=== PATIENT | male | born 1945 | race Caucasian/White ===

== ENCOUNTER 2017-06-17 10:55 | Emergency (ER) | payer MEDICARE, BC ==
[~2017-06-17 10:55] MED LIST: 1-ME1LIQ PO; ASPI325T PO; DIAZ10 PO; HUMSS SQ; LOSA25 PO
[2017-06-17 10:59] VITALS: BP 189/90; PULSE 81; RESP 20; TEMP 94.6; O2SAT 97
[2017-06-17] MEDS ORDERED: HUMILIN (11:05)
[2017-06-17] MEDS ORDERED: LOSA50TA PO (11:05)
[2017-06-17] MEDS ORDERED: HUMU70IN SQ (11:05)
--- NOTE | 2017-06-17 11:12 | PD ---
HPI Chief Complaint: General Weakness Time Seen by Provider: 11:07 Travel History International Travel<30 days: No Contact w/Intl Traveler<30days: No Traveled to known affect area: No History of Present Illness HPI Patient presents for an episode of hypoglycemia this morning reports a blood sugar 57. Transported by [facility], given an amp of D50. Reassessment of random blood sugar was 127. States his a.m. blood sugar normally runs in the 160s. States he is feeling fatigued and worn out. Denies any nausea vomiting diarrhea or fever. Denies any new chest pain shortness of breath urinary or bowel symptoms. Nonsmoker. History of hypertension and diabetes. PFSH Past Medical History Arthritis: Yes (Neck) Asthma: No Autoimmune Disease: No Blood Disorders: No Anxiety: No Depression: Yes Heart Rhythm Problems: No Cancer: Yes (Skin) Cardiovascular Problems: Yes High Cholesterol: Yes Chemotherapy: No Chest Pain: No Congestive Heart Failure: No COPD: No Cerebrovascular Accident: No Diabetes: Yes Patient Takes Glucophage: No Diminished Hearing: No Endocrine: Yes Gastrointestinal Disorders: No GERD: No Glaucoma: No Genitourinary: No Headaches: Yes Hepatitis: No Hiatal Hernia: No Hypertension: Yes Immune Disorder: No Implanted Vascular Access Dvce: No Kidney Stones: No Musculoskeletal: Yes Neurologic: Yes Psychiatric: No Reproductive: No Respiratory: Yes Immunizations Current: Yes Migraines: No Myocardial Infarction: No Radiation Therapy: No Renal Failure: No Seizures: No Sickle Cell Disease: No Sleep Apnea: Yes Thyroid Disease: No Ulcer: No PNEUMOCCOCAL Vaccine (Year): 2 Past Surgical History Abdominal Surgery: Yes (Colon repair) AICD: No Appendectomy: Yes Arteriovenous Shunt: No Cardiac Surgery: No Cholecystectomy: No Ear Surgery: No Endocrine Surgery: No Eye Surgery: Yes (BL cataracts ) Genitourinary Surgery: Yes Gynecologic Surgery: No Insulin Pump: No Joint Replacement: No Neurologic Surgery: No Oral Surgery: No Pacemaker: No Thoracic Surgery: No Other Surgery: Yes (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) Social History Alcohol Use: Yes (6 beers/night) Tobacco Use: No Substance Use: No Allergies-Medications (Allergen,Severity, Reaction): Coded Allergies: No Known Allergies (Verified , 06/17/17) Reported Meds & Prescriptions Reported Meds & Active Scripts Active Reported Losartan (Losartan Potassium) 50 Mg Tab 50 Mg PO DAILY [Humilin] Humulin 70-30 Inj (Insulin NPH Isophane-Reg (Human) 70-30 Inj) 1,000 Unit/10 Ml Vial 14 Unit SQ BID Review of Systems General / Constitutional: No: Fever Eyes: No: Visual changes HENT: No: Headaches Cardiovascular: No: Chest Pain or Discomfort Respiratory: No: Shortness of Breath Gastrointestinal: No: Abdominal Pain Genitourinary: No: Dysuria Musculoskeletal: No: Pain Skin: No Rash Neurologic: No: Weakness Psychiatric: No: Depression Endocrine: No: Polydipsia Hematologic/Lymphatic: No: Easy Bruising Physical Exam Narrative GENERAL: Well-nourished, well-developed patient. SKIN: Focused skin assessment warm/dry. HEAD: Normocephalic. EYES: No scleral icterus. No injection or drainage. NECK: Supple, trachea midline. No JVD or lymphadenopathy. CARDIOVASCULAR: Regular rate and rhythm without murmurs, gallops, or rubs. RESPIRATORY: Breath sounds equal bilaterally. No accessory muscle use. GASTROINTESTINAL: Abdomen soft, non-tender, nondistended. MUSCULOSKELETAL: No cyanosis, or edema. BACK: Nontender without obvious deformity. No CVA tenderness. Data Data Last Documented VS Vital Signs Date Time Temp Pulse Resp B/P (MAP) Pulse Ox O2 Delivery O2 Flow Rate FiO2 06/17/17 13:04 80 20 160/85 (110) 95 06/17/17 10:59 94.6 Orders Orders Sodium Chlorid 0.9% 500 Ml Inj (Ns 500 M (06/17/17 11:15) Chest, Single Ap (06/17/17 ) Complete Blood Count With Diff (06/17/17 11:07) Basic Metabolic Panel (Bmp) (06/17/17 11:07) Urinalysis - C+S If Indicated (06/17/17 11:07) Labs Laboratory Tests Test 06/17/17 11:15 06/17/17 12:30 White Blood Count 5.6 TH/MM3 Red Blood Count 4.73 MIL/MM3 Hemoglobin 14.6 GM/DL Hematocrit 43.8 % Mean Corpuscular Volume 92.7 FL Mean Corpuscular Hemoglobin 30.9 PG Mean Corpuscular Hemoglobin Concent 33.3 % Red Cell Distribution Width 12.3 % Platelet Count 148 TH/MM3 Mean Platelet Volume 10.7 FL Neutrophils (%) (Auto) 63.5 % Lymphocytes (%) (Auto) 25.2 % Monocytes (%) (Auto) 8.8 % Eosinophils (%) (Auto) 2.0 % Basophils (%) (Auto) 0.5 % Neutrophils # (Auto) 3.6 TH/MM3 Lymphocytes # (Auto) 1.4 TH/MM3 Monocytes # (Auto) 0.5 TH/MM3 Eosinophils # (Auto) 0.1 TH/MM3 Basophils # (Auto) 0.0 TH/MM3 CBC Comment DIFF FINAL Differential Comment Blood Urea Nitrogen 10 MG/DL Creatinine 1.10 MG/DL Random Glucose 100 MG/DL Calcium Level 9.2 MG/DL Sodium Level 138 MEQ/L Potassium Level 3.6 MEQ/L Chloride Level 102 MEQ/L Carbon Dioxide Level 28.1 MEQ/L Anion Gap 8 MEQ/L Estimat Glomerular Filtration Rate 66 ML/MIN Urine Collection Type CLEAN CATCH Urine Color STRAW Urine Turbidity SLIGHT Urine pH 7.0 Urine Specific [place] 1.004 Urine Protein TRACE mg/dL Urine Glucose (UA) NEG mg/dL Urine Ketones NEG mg/dL Urine Occult Blood TRACE Urine Nitrite NEG Urine Bilirubin NEG Urine Leukocyte Esterase NEG Urine RBC 0-3 /hpf Urine Squamous Epithelial Cells 0-5 /hpf Urine Amorphous Sediment FEW Microscopic Urinalysis Comment CULT NOT INDICATED Urine Collection Time 1230 MDM Medical Decision Making Medical Screen Exam Complete: Yes Emergency Medical Condition: Yes Differential Diagnosis Hypoglycemia, fatigue, UTI, sepsis Narrative Course Assessment and plan discussed with patient at bedside. Labs reviewed. Last 72 hours Impressions Chest X-Ray 06/17/17 0000 Signed Impressions: Service Date/Time: Saturday, June 17, 2017 11:30 - CONCLUSION: Mild underinflation with atelectasis at the lung bases. Otherwise, no acute finding is identified. Winston Sigala MD Diagnosis Primary Impression: Hypoglycemia Patient Instructions: General Instructions Additional Instructions: Encouraged to continue regular medications, encouraged to here to diabetic diet , encouraged alcohol cessation. Encouraged to follow-up with his PCP. Encouraged to return to emergency room with any onset of new symptoms. Med/Other Pt SpecificInfo: No Meds Exist/No RX given Disposition: DISCHARGE HOME Condition: Good Chente Ferguson MD Jun 17, 2017 11:12
[2017-06-17] MEDS ORDERED: SODIUM CHLORID 0.9% 500 ML INJ 500 ML IV ONE (11:15)
[2017-06-17 11:34] LABS: POTASSIUM 3.6 MEQ/L (3.5-5.1)
[2017-06-17 11:35] LABS: AUTOMATED NEUTROPHIL # 3.6 TH/MM3 (1.8-7.7); BASOPHIL % 0.5 % (0.0-2.0); EOSINOPHIL # 0.1 TH/MM3 (0-0.4); HEMATOCRIT 43.8 % (39.0-51.0); HEMO FLAGS DIFF FINAL; LYMPH % 25.2 % (9.0-44.0); LYMPHOCYTE # 1.4 TH/MM3 (1.0-4.8); MEAN CELL VOLUME 92.7 FL (80.0-100.0); MEAN CORPUSCULAR HEMOGLOBIN 30.9 PG (27.0-34.0); MEAN CORPUSCULAR HGB CONC 33.3 % (32.0-36.0); MONO % 8.8 % (0.0-8.0); NEUT % 63.5 % (16.0-70.0); PLATELET COUNT 148 TH/MM3 (150-450); RED BLOOD COUNT 4.73 MIL/MM3 (4.50-5.90); RED CELL DISTRIBUTION WIDTH 12.3 % (11.6-17.2); WHITE BLOOD COUNT 5.6 TH/MM3 (4.0-11.0)
[2017-06-17 11:37] LABS: BICARBONATE 28.1 MEQ/L (21.0-32.0)
--- NOTE | 2017-06-17 11:43 | RADRPT ---
EXAM DATE/TIME: 06/17/2017 11:30 [facility] COMPARISON: CHEST SINGLE AP, November 06, 2015, 14:47. INDICATIONS : Short of breath. MEDICAL HISTORY : None. SURGICAL HISTORY : None. ENCOUNTER: Initial ACUITY: 1 day PAIN SCORE: 7/10 LOCATION: Bilateral chest FINDINGS: Underinflated AP view of the chest demonstrates a normal-sized cardiac silhouette. There is mild atel ectasis at the lung bases. No effusion, consolidation, or pneumothorax is present. Bones and soft tis sues demonstrate no acute finding. CONCLUSION: Mild underinflation with atelectasis at the lung bases. Otherwise, no acute finding is identified. Winston Sigala MD on June 17, 2017 at 11:40 Board Certified Radiologist. This report was verified electronically.
[2017-06-17 11:56] VITALS: BP 146/74; PULSE 83; RESP 20; O2SAT 96
[2017-06-17 13:01] LABS: GLUCOSE,URINE NEG (NEG); KETONE, URINE NEG (NEG); NITRITE,URINE NEG (NEG)
[2017-06-17 13:03] LABS: BLOOD, URINE TRACE (NEG)
[2017-06-17 13:04] VITALS: BP 160/85; PULSE 80; RESP 20; O2SAT 95
[2017-06-17 13:25] LABS: COMMENT (UR) CULT NOT INDICATED; CULTURE IF INDICATED CULT NOT INDICATED; METHOD OF COLLECTION CLEAN CATCH; RBC, URINE 0-3 /hpf (0-3); SQUAMOUS EPITHELIAL CELL URINE 0-5 /hpf (0-5); URINE COLOR STRAW (YELLW/STRAW)
== END 2017-06-17 13:58 | disposition home or self-care (01) ==
LOC: PHED 10:55
DX: E11.649 Type 2 diabetes mellitus with hypoglycemia without coma (principal); Z79.4 Long term (current) use of insulin
CPT/HCPCS: 71010; 80048; 81001; 85025; 96360; 99284; J7040